=== PATIENT | female | born 2000 | race Caucasian/White ===

== ENCOUNTER 2018-05-22 21:21 | Emergency (ER) | payer OTHER ==
[~2018-05-22] VITALS: Ht 162.6 cm; Wt 90.7 kg
[~2018-05-22 21:21] MED LIST: DOXYCYCLINE HY100 M2 PO; HYDROCORTISONE15 GM TOP; IBUPROFEN800 M1 PO; SULFAMETHOXAZO1 EAC1 PO; TRAMADOL HCL50 M1 PO
[2018-05-22 21:25] VITALS: BP 127/81
--- NOTE | 2018-05-22 21:31 | ED SKIN/ALLERGY COMPLAINT ---
History of Present Illness General Chief Complaint: General Adult Stated Complaint: "BOTH HANDS DRY AND BLISTERING" PER PT Source: patient Exam Limitations: no limitations Vital Signs & Intake/Output Vital Signs & Intake/Output Vital Signs Date Time Temp Pulse Resp B/P B/P Pulse O2 O2 Flow FiO2 Mean Ox Delivery Rate 05/22 2125 98.2 108 18 127/81 97 Room Air Allergies Coded Allergies: MDX - PCN (penicillin) (PCN (PENICILLIN)) (UNKNOWN 09/14/12) Reconcile Medications Doxycycline Hyclate 100 MG CAPSULE 1 CAP PO BID ANTIBIOTIC, INFECTION ( Reported) Hydrocortisone Valerate 0.2 % CREAM..G. 1 GREG TOP BID ANTI-INFLAMMATORY ( Reported) apply to affected area(s) Ibuprofen 800 MG TABLET 1 TAB PO Q8 PRN PAIN Sulfamethoxazole/Trimethoprim (Sulfamethoxazole-Tmp Ds Tablet) 800 MG-160 MG TABLET 1 TAB PO BID ANTIBIOTIC, INFECTION (Reported) Tramadol HCl 50 MG TABLET 1-2 TAB PO Q6 PRN pain Triamcinolone Acetonide 0.5 % CREAM..G. 1 GREG TOP BID ECZEMA apply to affected area(s) Triage Note: PT TO TRIAGE WITH BLISTERING/PEELING HANDS X FEW DAYS PER PT. DENIES ANY NEW SOAPS/DETERGENTS/ CONTACTS. Triage Nurses Notes Reviewed? yes Onset: Abrupt Duration: day(s):, constant Timing: recent history : No Patient currently breastfeeds: No HPI: 17-year-old female comes into the emergency room for further evaluation of rash to bilateral hands consistent with her eczema. Affecting mainly her fourth and fifth digit. Itching. Pain getting progressively worse. Patient has no medications at home currently. She uses eczema cream and [id number] with no relief. Past History Travel History Traveled to [place] past 21 day No Medical History Any Pertinent Medical History? see below for history Neurological: NONE EENT: NONE Cardiovascular: NONE Respiratory: NONE Gastrointestinal: NONE Hepatic: NONE Renal: NONE Musculoskeletal: NONE Psychiatric: NONE Endocrine: NONE Blood Disorders: NONE Cancer(s): NONE ECHOCARDIOGRAPHY TECHNOLOGIST/Reproductive: NONE Surgical History Surgical History: non-contributory Psychosocial History What is your primary language Irish Tobacco Use: Never used ETOH Use: denies use Family History Hx Contributory? No Review of Systems Review of Systems Constitutional: Reports: no symptoms. EENTM: Reports: no symptoms. Respiratory: Reports: no symptoms. Cardiovascular: Reports: no symptoms. GI: Reports: no symptoms. Genitourinary: Reports: no symptoms. Musculoskeletal: Reports: no symptoms. Skin: Reports: see HPI. Neurological/Psychological: Reports: no symptoms. Hematologic/Endocrine: Reports: no symptoms. Immunologic/Allergic: Reports: no symptoms. All Other Systems: Reviewed and Negative Physical Exam Physical Exam General Appearance: well developed/nourished, mild distress Head: atraumatic Eyes: Bilateral: normal appearance. Ears, Nose, Throat: normal ENT inspection, hearing grossly normal Neck: normal inspection Respiratory: no respiratory distress Back: normal inspection Extremities: normal inspection, normal range of motion, no edema Neurologic/Psych: awake, alert, oriented x 3, normal mood/affect Skin: intact, rash Skin Problem Location: upper extremities, CRACKING OF SKIN IN BILATERAL HANDS OF FOURTH AND FIFTH DIGIT, EXCORIATIONS, SOME MILD ERYTHEMA, LICHENIFICATION, Progress Differential Diagnosis: contact dermatitis, ECZEMA Plan of Care: 05/22/2018 9:44:29 PM Use topical medication as prescribed. Follow-up with your small machine bindery operator. Return if any other concerns worsening symptoms. Departure Departure Disposition: HOME OR SELF CARE Condition: Stable Clinical Impression Primary Impression: Eczema Referrals: Albin CONTRERAS,Sourav Carnes (PCP/Family) Additional Instructions: Use triamcinolone cream as prescribed. Follow-up with small machine bindery operator. Return if any other concerns worsening symptoms. Please go over all results of today's visit with your primary care doctor. Contact your primary care doctor to let them know you were here in the emergency room. There may be nonspecific findings which may not be related to your visit today here in the emergency room but may require further evaluation and chronic monitoring by your primary care doctor. If you had a laceration today the chance of foreign body always remains. You should follow-up with your primary care doctor for recheck in 3-5 days for a wound check. If you had an x-ray done there is a chance that a fracture could have been missed on initial read and you should follow-up with your primary care doctor for repeat x-rays if symptoms persist. If your blood pressure was elevated here in the emergency room please have rechecked by the [facility] primary care doctor within the next 48. If you were prescribed a narcotic here in the emergency room or any type of controlled substances you're not allowed to drive while taking this medication or operate any type of heavy machinery. Narcotics can make you feel lightheaded dizziness nausea and can cause constipation. You may need to molded goods spot picker a stool softener. Thank you for choosing [facility] emergency room. Please return to the emergency room immediately if you have any other concerns worsening of symptoms. Departure Forms: Customer Survey General Discharge Information Prescriptions: Current Visit Scripts Triamcinolone Acetonide 1 GREG TOP BID #30 GM apply to affected area(s)
[2018-05-22] MEDS ORDERED: TRIAMCINOLONE A15 G2 TOP (21:35)
== END 2018-05-22 21:46 ==
LOC: ERH 21:21
DX: L30.9 Dermatitis, unspecified (principal)